=== PATIENT | male | born 1970 | race Caucasian/White ===

== ENCOUNTER 2016-05-22 20:55 | Emergency (ER) | payer OTHER ==
[2016-05-22] MEDS ORDERED: NS 1,000 ML IV ONE ×2 (21:19)
[2016-05-22 21:29] LABS: % IMMATURE GRANULYOCYTES 0.4 % (0.0-1.1); ABSOLUTE IMMATURE GRANULOCYTES 0.03 10^3/uL (0.00-0.10); ADD DIFF? NO; ADD MORPH? NO; ADD SCAN? YES; ATYPICAL LYMPHOCYTE FLAG 0 (0-99); FRAGMENT RBC FLAG 0 (0-99); HEMATOCRIT 46.2 % (40.0-51.0); HEMOGLOBIN 16.3 g/dL (13.7-17.5); LIPEMIA HEMOLYSIS FLAG 90 (0-99); MEAN CELL HEMOGLOBIN 30.2 pg (27.9-34.1); MEAN CELL HEMOGLOBIN CONCENTR. 35.3 g/dL (32.4-36.7); MEAN CELL VOLUME 85.6 fL (81.5-99.8); MEAN PLATELET VOLUME 9.8 fL (8.7-11.7); PLATELET CLUMPS FLAG 10 (0-99); PLATELET COUNT 209 10^3/uL (150-400); RED CELL DISTRIBUTION WIDTH 13.7 % (11.5-15.2)
[2016-05-22 21:30] LABS: LEFT SHIFT FLG 110 (0-99)
[2016-05-22 21:42] LABS: SCAN POSITIVE
[2016-05-22 21:43] LABS: ANION GAP 11 mEq/L (8-16); CALCIUM 8.9 mg/dL (8.5-10.4); CARBON DIOXIDE 21 mEq/l (22-31); CHLORIDE 104 mEq/L (97-110); CREATININE 0.9 mg/dL (0.7-1.3); GLOMERULAR FILTRATION RATE > 60; GLUCOSE 105 mg/dL (70-100); POTASSIUM 3.5 mEq/L (3.5-5.2); SODIUM 136 mEq/L (134-144)
[2016-05-22 21:45] LABS: PLATELET ESTIMATE ADEQUATE (ADEQ)
[2016-05-22 21:52] LABS: COLOR YELLOW; LEUKOCYTE ESTERASE,URINE 1+ (NEGATIVE); NITRITE,URINE NEGATIVE (NEGATIVE); PH,URINE 5.5 (5.0-7.5)
--- NOTE | 2016-05-22 21:58 | UCPHY ---
H & P Time Seen by Provider: 05/22/16 21:08 Patient Type: New HPI/ROS: HPI Body aches, urinary complaints, fever. 46-year-old male by private vehicle with his family. This patient reports that since this morning he has felt achy all over in his bones and joints. He reports that at 4:00 p.m. he developed fever and was having discomfort with urination described as a burning on urination and increased frequency with urination. He reports feeling a sensation of pain in his prostate area as well. ROS: Constitutional: No fever, no chills. No weakness. Eyes: No discharge. No changes in vision. ENT: No sore throat. No nasal congestion or rhinorrhea. Respiratory: No cough. No shortness of breath. Cardiac: No chest pain, no palpitations. Gastrointestinal: As above, no vomiting, no diarrhea. Genitourinary: No hematuria. As above. Musculoskeletal: As above. Skin: No rashes. Neurological: No headache. No focal weakness or altered sensation. Past medical history: He denies any past medical history. He is not on any prescription medication. No allergies to medication. His primary care physician is Dr. Hussein. Social history: Here with and family. Physical Exam: General Appearance: Alert, he appears uncomfortable. This patient is responding to questions appropriately and in full sentences. This patient appears well-hydrated and well-nourished. Eyes: Pupils equal and round no pallor or injection. No lid edema, erythema or injection. Respiratory: There are no retractions, lungs are clear to auscultation with good air movement bilaterally. Cardiovascular: Regular rate and rhythm. Tachycardia. No murmur. Gastrointestinal: Abdomen is soft and nontender, no masses, bowel sounds normal. No focal tenderness at McBurney's point. No Schmitt sign. Neurological: Motor sensory function is grossly intact. Cranial nerves are normal. Gait is normal. Skin: Warm and dry, no rashes. Musculoskeletal: No CVA tenderness on palpation. Extremities are symmetrical. All joints range without pain or impingement. Psychiatric: No agitation. No depression. Database: EKG: Imaging: Procedures: Emergency department course: IV placed. Vital signs have been reviewed. The patient took a g of Tylenol and 800 mg of ibuprofen prior to arrival. He was started on IV normal saline with 1-2 L to be given over the next 1-2 hours. Urinalysis indicates infection. Patient most likely has prostatitis. Patient started on Levaquin, 750 mg IV in the urgent care. He has received 1 L of IV normal saline. 10:15 p.m., heart rate 110. 11:20 p.m., patient has had 2 L of IV normal saline and IV Levaquin as noted. He is feeling better. He is afebrile. Heart rate down to 110. Blood pressure 127/82. I did discuss admission with him. He declined this. He does feel comfortable going home. I discussed strict return to emergency department precautions at [facility]. He will be prescribed Levaquin at 500 mg daily for 14 days initially unless otherwise directed by his primary care physician or urologist. Follow-up was reviewed with him thoroughly. He is in agreement with this plan. All of his questions were answered. He was discharged in good condition with his family. Differential Diagnosis: The differential diagnosis on this patient includes but is not limited to prostatitis, urinary tract infection, influenza. This represents a partial list of diagnoses considered. These considerations are based on history, physical exam, past history, reassessment and diagnostic testing. Smoking Status: Never smoked Constitutional: Initial Vital Signs Temperature (C) 37.3 C 05/22/16 21:21 Heart Rate 137 H 05/22/16 21:21 Respiratory Rate 20 05/22/16 21:21 Blood Pressure 138/97 H 05/22/16 21:21 O2 Sat (%) 94 05/22/16 21:21 O2 Delivery Mode Room Air Allergies/Adverse Reactions: No Known Allergies Allergy (Unverified 08/04/14 14:38) Home Medications: Medication Instructions Recorded Cyanocobalamin [Vitamin B12 (*)] 1,000 mcg PO DAILY 12/22/15 levOFLOXACIN [levAQUIN (*)] 500 mg PO DAILY #14 tab 05/22/16 Medical Decision Making - Data Points Laboratory Results: Laboratory Results 05/22/16 21:25 05/22/16 21:25 05/22/16 05/22/16 05/22/16 21:45 21:25 21:15 WBC 6.89 10^3/uL (3.80-9.50) RBC 5.40 10^6/uL (4.40-6.38) Hgb 16.3 g/dL (13.7-17.5) Hct 46.2 % (40.0-51.0) MCV 85.6 fL (81.5-99.8) MCH 30.2 pg (27.9-34.1) MCHC 35.3 g/dL (32.4-36.7) RDW 13.7 % (11.5-15.2) Plt Count 209 10^3/uL (150-400) MPV 9.8 fL (8.7-11.7) Neut % (Auto) 89.2 H % (39.3-74.2) Lymph % (Auto) 8.9 L % (15.0-45.0) [place] % (Auto) 0.6 L % (4.5-13.0) Eos % (Auto) 0.6 % (0.6-7.6) Baso % (Auto) 0.3 % (0.3-1.7) Nucleat RBC Rel Count 0.0 % (0.0-0.2) Absolute Neuts (auto) 6.15 10^3/uL (1.70-6.50) Absolute Lymphs (auto) 0.61 L 10^3/uL (1.00-3.00) Absolute Monos (auto) 0.04 L 10^3/uL (0.30-0.80) Absolute Eos (auto) 0.04 10^3/uL (0.03-0.40) Absolute Basos (auto) 0.02 10^3/uL (0.02-0.10) Absolute Nucleated RBC 0.00 10^3/uL (0-0.01) Immature Gran % 0.4 % (0.0-1.1) Seg Neutrophils % 82 % Band Neutrophils % 6 % Lymphocytes % 10 % Monocytes % 1 % Metamyelocytes % 1 % Immature Gran # 0.03 10^3/uL (0.00-0.10) Absolute Seg Neuts 5.6 K/MM3 (1.8-7) Absolute Band Neuts 0.4 K/MM3 (0-0.7) Absolute Lymphocytes 0.7 L K/mm3 (1.0-4.8) Absolute Monocytes 0.1 K/mm3 (0-0.8) Absolute Metamyelocyte 0.1 H K/mm3 (0-0) Platelet Estimate ADEQUATE (ADEQ) Sodium 136 mEq/L (134-144) Potassium 3.5 mEq/L (3.5-5.2) Chloride 104 mEq/L (97-110) Carbon Dioxide 21 L mEq/l (22-31) Anion Gap 11 mEq/L (8-16) BUN 16 mg/dL (7-23) Creatinine 0.9 mg/dL (0.7-1.3) Estimated GFR > 60 Glucose 105 H mg/dL (70-100) Calcium 8.9 mg/dL (8.5-10.4) Urine Color YELLOW Urine Appearance HAZY Urine pH 5.5 (5.0-7.5) Ur Specific [place] <= 1.005 (1.002-1.030) Urine Protein NEGATIVE (NEGATIVE) Urine Ketones NEGATIVE (NEGATIVE) Urine Blood 1+ H (NEGATIVE) Urine Nitrate NEGATIVE (NEGATIVE) Urine Bilirubin NEGATIVE (NEGATIVE) Urine Urobilinogen 0.2 EU (0.2-1.0) Ur Leukocyte Esterase 1+ H (NEGATIVE) Urine RBC 15-25 H /hpf (0-3) Urine WBC 15-25 H /hpf (0-3) Ur Epithelial Cells TRACE /lpf (NONE-1+) Urine Bacteria 2+ H /hpf (NONE SEEN) Urine Mucus 1+ /lpf (NONE-1+) Ur Culture Indicated? INDICATED H (NI) Urine Glucose NEGATIVE (NEGATIVE) Influenza Typ A,B (DFA) NEGATIVE FOR FLU (NEGATIVE) Medications Given: Discontinued Medications Acetaminophen (Tylenol) 1,000 mg PO EDNOW ONE Stop: 05/22/16 22:18 Last Admin: 05/22/16 22:10 Dose: 1,000 mg Sodium Chloride (Ns) 1,000 mls @ 0 mls/hr IV ONCE ONE PRN Reason: Wide Open Stop: 05/22/16 21:20 Last Admin: 05/22/16 21:28 Dose: 1,000 mls Sodium Chloride (Ns) 1,000 mls @ 0 mls/hr IV ONCE ONE PRN Reason: Wide Open Stop: 05/22/16 21:20 Last Admin: 05/22/16 21:41 Dose: 1,000 mls Departure - Departure Disposition: Home, Routine, Self-Care Clinical Impression: Prostatitis Instructions: Prostatitis (ED) Additional Instructions: Read and follow provided instructions. Follow-up with your primary care physician in 1-2 days or urologist as discussed for re-evaluation without fail. Take medication as prescribed through entire course of treatment unless otherwise directed by your primary care physician or urologist. Return to the emergency department for worsening fever, pain, vomiting, weakness , blood in urine or other serious concerns. Drink plenty of fluids and keep yourself well hydrated. Do not take Tylenol for fever until tomorrow and only take as directed. Referrals: Wilver Hussein MD [Primary Care Provider] - As per Instructions Eben Eden MD [Medical Doctor] - As per Instructions Stand Alone Forms: Work Excuse Prescriptions: levOFLOXACIN [levAQUIN (*)] 500 mg PO DAILY #14 tab - PQRS PQRS Measurement: 134: Depression screening and followup, PRIME MD-PHQ2 (12 years and older) Over the last 2 weeks, how often have you been bothered by any of the following problems? 1. Feeling down, depressed, or hopeless? 2. Little interest or pleasure in doing things? Answered no to both questions. 130: Documentation of medications. Reviewed all patient medications, doses, route and frequency. 226: Do you smoke? No. 47: 65 and older: Advanced care planning. Patient designates surrogate decision maker as spouse. 51: 18 years old and older with diagnosis of COPD, spirometry performance. NA 52: 18 years old and older with COPD and symptoms of COPD or FEV1<60% predicted prescribed a B Agonist. NA
[2016-05-22 22:00] LABS: BACTERIA 2+ /hpf (NONE SEEN); MUCUS 1+ /lpf (NONE-1+); RBC,URINE 15-25 /hpf (0-3); WBC,URINE 15-25 /hpf (0-3)
[2016-05-22] MEDS ORDERED: ACETAMINOPHEN 500 MG TAB ONE (22:09)
[2016-05-22] MEDS ORDERED: ACETAMINOPHEN 325 MG TAB PO ONE (22:17)
[2016-05-22 22:20] VITALS: O2SAT 93
[2016-05-22 23:31] VITALS: BP 127/82; PULSE 108; RESP 16; TEMP 99
== END 2016-05-22 23:31 | disposition home or self-care (01) ==
LOC: CED 20:55
DX: N41.9 Inflammatory disease of prostate, unspecified (principal)
CPT/HCPCS: 80048-PO; 81003-PO; 81015-PO; 85025-PO; 87400-PO; 96361-PO; 96365-PO; 99203-PO; G0463-PO; J1956

== ENCOUNTER 2017-07-25 18:24 | Emergency (ER) | payer OTHER ==
[2017-07-25 18:30] VITALS: RESP 18; TEMP 98.8
[2017-07-25] MEDS ORDERED: NS 1,000 ML IV ONE (19:00)
[2017-07-25] MEDS ORDERED: cefTRIAXone 1 GM in STERILE WATER INJ 10 ML IV ONE (19:00)
[2017-07-25 19:09] LABS: PLATELET COUNT 225 10^3/uL (150-400)
[2017-07-25] MEDS ORDERED: KETOROLAC 30 MG/1 ML SDV ONE (19:22)
[2017-07-25] MEDS ORDERED: KETOROLAC 30 MG/1 ML SDV IVP ONE (19:24)
[2017-07-25] MEDS ORDERED: PHENAZOPYRIDINE HCL 200 MG TAB PO ONE (19:29)
--- NOTE | 2017-07-25 19:43 | EDPHY ---
H & P Time Seen by Provider: 07/25/17 18:38 HPI/ROS: Chief complaint. Abdominal pain, urinary symptoms HPI. 47-year-old male presents emergency department with 2 days of suprapubic abdominal pain. Gradually worsening. Achy and low-grade fever. He has urinary frequency and dysuria. It aguila when he urinates. He has a history of kidney stones as well as UTI. This feels like UTI and not kidney stones. No nausea and vomiting. Penis and testicles otherwise normal. ROS Constitutional. Fever Eyes. no problems with vision ENT. no sore throat, no nasal drainage Cardiovascular. no chest pain Respiratory. no shortness of breath, no cough Abdominal. Abdominal pain . Urinary frequency and dysuria MS. no calf pain/swelling, no neck/back pain, no joint pain Skin. no rash Lymph. no swollen glands Neuro. no headache, no dizziness, no difficulty walking or with speech Past Medical/Surgical History: Hernia surgery, UTI, kidney stones Social History: , nonsmoker, no alcohol Smoking Status: Never smoked Physical Exam: General Appearance: Alert well-developed male moderate distress vital signs show temp 37.1 degrees with initial blood pressure 148/114 Eyes: Pupils equal and round no pallor or injection. ENT, Mouth: Mucous membranes are moist. Respiratory: There are no retractions, lungs are clear to auscultation. Cardiovascular: Regular rate and rhythm. Gastrointestinal: Abdomen is soft with suprapubic tenderness. No masses. Normal bowel sounds Neurological: Awake and alert, sensory and motor exams grossly normal. Skin: Warm and dry, no rashes. Musculoskeletal: Neck is supple nontender. Extremities symmetrical, full range of motion. Psychiatric: Patient is oriented X 3, there is no agitation. Constitutional: Initial Vital Signs Temperature (C) 37.1 C 07/25/17 18:27 Heart Rate 92 07/25/17 18:27 Respiratory Rate 18 07/25/17 18:27 Blood Pressure 148/114 H 07/25/17 18:27 O2 Sat (%) 96 07/25/17 18:27 O2 Delivery Mode Room Air Allergies/Adverse Reactions: No Known Allergies Allergy (Unverified 08/04/14 14:38) Home Medications: Medication Instructions Recorded Cephalexin [Keflex (*)] 500 mg PO TID #21 cap 07/25/17 Medical Decision Making Procedures: IV normal saline. Rocephin IV. Toradol IV. Peridium orally ED Course/Re-evaluation: Urine is positive for both blood and white blood cells. It is sent for culture and sensitivity. On re-evaluation patient is stable. The patient and I discussed laboratory evaluation, treatment plan including criteria for return importance of follow- up and further evaluation. He expresses understanding and agreement Differential Diagnosis: I considered urinary tract infection, pyelonephritis, kidney stone - Data Points Laboratory Results: Laboratory Results 07/25/17 18:48 07/25/17 18:48 07/25/17 07/25/17 07/25/17 18:48 18:48 18:31 WBC 9.24 10^3/uL 10^3/uL (3.80-9.50) RBC 5.48 10^6/uL 10^6/uL (4.40-6.38) Hgb 16.5 g/dL g/dL (13.7-17.5) Hct 47.5 % % (40.0-51.0) MCV 86.7 fL fL (81.5-99.8) MCH 30.1 pg pg (27.9-34.1) MCHC 34.7 g/dL g/dL (32.4-36.7) RDW 14.3 % % (11.5-15.2) Plt Count 225 10^3/uL 10^3/uL (150-400) MPV 9.7 fL fL (8.7-11.7) Neut % (Auto) 65.0 % % (39.3-74.2) Lymph % (Auto) 22.3 % % (15.0-45.0) [place] % (Auto) 10.0 % % (4.5-13.0) Eos % (Auto) 1.9 % % (0.6-7.6) Baso % (Auto) 0.5 % % (0.3-1.7) Nucleat RBC Rel Count 0.0 % % (0.0-0.2) Absolute Neuts (auto) 6.00 10^3/uL 10^3/uL (1.70-6.50) Absolute Lymphs (auto) 2.06 10^3/uL 10^3/uL (1.00-3.00) Absolute Monos (auto) 0.92 10^3/uL H 10^3/uL (0.30-0.80) Absolute Eos (auto) 0.18 10^3/uL 10^3/uL (0.03-0.40) Absolute Basos (auto) 0.05 10^3/uL 10^3/uL (0.02-0.10) Absolute Nucleated RBC 0.00 10^3/uL 10^3/uL (0-0.01) Immature Gran % 0.3 % % (0.0-1.1) Immature Gran # 0.03 10^3/uL 10^3/uL (0.00-0.10) Sodium 141 mEq/L mEq/L (135-145) Potassium 4.3 mEq/L mEq/L (3.5-5.2) Chloride 104 mEq/L mEq/L (97-110) Carbon Dioxide 24 mEq/l mEq/l (22-31) Anion Gap 13 mEq/L mEq/L (8-16) BUN 14 mg/dL mg/dL (7-23) Creatinine 0.7 mg/dL mg/dL (0.7-1.3) Estimated GFR > 60 Glucose 91 mg/dL mg/dL (70-100) Calcium 9.3 mg/dL mg/dL (8.5-10.4) Urine Color YELLOW Urine Appearance HAZY Urine pH 6.0 (5.0-7.5) Ur Specific [place] 1.018 (1.002-1.030) Urine Protein 1+ H (NEGATIVE) Urine Ketones NEGATIVE (NEGATIVE) Urine Blood 2+ H (NEGATIVE) Urine Nitrate NEGATIVE (NEGATIVE) Urine Bilirubin NEGATIVE (NEGATIVE) Urine Urobilinogen NEGATIVE EU EU (0.2-1.0) Ur Leukocyte Esterase 3+ H (NEGATIVE) Urine RBC 50-182 /hpf H /hpf (0-3) Urine WBC 50-182 /hpf H /hpf (0-3) Ur Epithelial Cells NONE SEEN /lpf /lpf (NONE-1+) Urine Bacteria 3+ /hpf H /hpf (NONE SEEN) Urine Mucus 1+ /lpf /lpf (NONE-1+) Urine Glucose NEGATIVE (NEGATIVE) Medications Given: Discontinued Medications Ceftriaxone Sodium 1 gm/ (Sterile Water) 10 mls @ 150 mls/hr IV EDNOW ONE PRN Reason: Protocol Stop: 07/25/17 19:03 Last Admin: 07/25/17 19:31 Dose: Not Given Sodium Chloride (Ns) 1,000 mls @ 0 mls/hr IV EDNOW ONE; Wide Open PRN Reason: Protocol Stop: 07/25/17 19:01 Last Admin: 07/25/17 19:14 Dose: 1,000 mls Ceftriaxone Sodium/Dextrose (Rocephin 1 Gm (Premix)) 50 mls @ 100 mls/hr IV EDNOW ONE Stop: 07/25/17 19:59 Last Admin: 07/25/17 19:26 Dose: 50 mls Ketorolac Tromethamine (Toradol) 30 mg IVP EDNOW ONE Stop: 07/25/17 19:25 Last Admin: 07/25/17 19:26 Dose: 30 mg Phenazopyridine HCl (Pyridium) 200 mg PO EDNOW ONE Stop: 07/25/17 19:30 Last Admin: 07/25/17 19:50 Dose: 200 mg Departure - Departure Disposition: Home, Routine, Self-Care Clinical Impression: Urinary tract infection Qualifiers: Urinary tract infection type: acute cystitis Hematuria presence: with hematuria Qualified Code(s): N30.01 - Acute cystitis with hematuria Condition: Good Instructions: Urinary Tract Infection in Men (ED) Additional Instructions: Drink plenty of fluids and stay hydrated. Cephalexin as antibiotic. Peridium to help with pain. Ibuprofen 600 mg every 6 hr for discomfort. Percocet 1 pill every 4-6 hours in addition if needed for pain. Return for vomiting, worsening abdominal pain. Recheck in [address] Hussein without fail. Referrals: NONE *PRIMARY CARE P,. [Primary Care Provider] - As per Instructions Wilver Hussein MD [[facility] [place] Primary Care Provider] - As per Instructions Prescriptions: Cephalexin [Keflex (*)] 500 mg PO TID #21 cap
[2017-07-25] MEDS ORDERED: OXYCODONE/APAP 5/325MG PREPACK#4 BTL TAKEHOME ONE (20:05)
[2017-07-25 20:27] VITALS: BP 136/92; PULSE 88; O2SAT 97
--- NOTE | 2017-07-27 17:10 | ASMTCMCOM ---
CM Note CM Note Notes: [facility] [place], Dr. Hussein's office called at [phone] but unable to LM because "office closed". Urine culture results dated 07/27/17 ([facility]) faxed to Dr. Hussein , including need for antibiotic prescription and follow up. ML for patient per Piedad IniguezShelf Drier Operator as well Date Signed: 07/27/2017 05:10 PM Electronically Signed By:Mireille Batres RN
== END 2017-07-25 20:30 | disposition home or self-care (01) ==
DX: N30.01 Acute cystitis with hematuria (principal); E86.9 Volume depletion, unspecified; B96.20 Unspecified Escherichia coli [E. coli] as the cause of diseases classified elsewhere
CPT/HCPCS: 96365; J0696; J1885